=== PATIENT | female | born 1995 | race Caucasian/White ===

== ENCOUNTER 2023-09-08 22:03 | Inpatient (IN) ==
[2023-09-08 23:34] LABS: ABS Basophils 0.1 10^3/uL (0.0-0.1); ABS Lymphocytes 1.5 10^3/uL (1.0-4.8); ABS Monocytes 0.8 10^3/uL (0.0-0.9); ABS Neutrophils 12.5 10^3/uL (1.5-7.6); Eosinophil % 0.2 %; Hematocrit 40.5 % (35-45); Hemoglobin 13.5 g/dL (11.5-14.3); Lymphocyte % 9.8 %; Mean Corpuscular Hemoglobin 28.7 pg (27-33); Mean Corpuscular Hgb Conc 33.4 g/dL (31-36); Mean Corpuscular Volume 86.1 fL (80-97); Mean Platelet Volume 9.4 fL (7.5-11.2); Platelet Count 149 10^3/uL (150-450); Red Cell Distribution Width 15.3 % (12-17); White Blood Count 14.9 10^3/uL (3.8-11.8)
[2023-09-08 23:52] LABS: Urine Benzodiazepine Screen None Detected (None Detect); Urine Cannabinoids Screen None Detected (None Detect); Urine Opiates Screen None Detected (None Detect)
[2023-09-09] MEDS ORDERED: Lidocaine 1% VIAL 10 MG/ML 30 ML VIAL INJ PRN (01:20)
[2023-09-09] MEDS ORDERED: Prochlorperazine 5 mg/ml 2 ml VIAL (10 mg) IV PRN (01:20)
[2023-09-09] MEDS ORDERED: Nalbuphine 10 MG/ML 1 ML VIAL IV PRN (01:20)
[2023-09-09] MEDS: Lactated Ringers 1000 ml BAG 1,000 ML IV ONE (02:15)
[2023-09-09] MEDS: Lactated Ringers 1000 ml BAG 1,000 ML IV SCH ×2 (07:16→10:04)
[2023-09-09] MEDS: OBEPIDURAL (200 ML) 200 ML EPIDURAL ONE (08:23)
[2023-09-09] MEDS: Phenylephrine 40 mcg/mL 10mL (400mcg) SYRINGE IV PUSH PRN (08:35)
[2023-09-09] MEDS ORDERED: Lactated Ringers 1000 ml BAG 500 ML IV PRN ×2 (08:48)
[2023-09-09] MEDS ORDERED: Phenylephrine 40 mcg/mL 10mL (400mcg) SYRINGE IV PUSH PRN (08:48)
[2023-09-09] MEDS ORDERED: Phenylephrine IV 10 MG/ML 1 ml VIAL ONE (09:13)
[2023-09-09] MEDS ORDERED: Oxytocin 10 UNITS/ML 1 ML VIAL ONE (09:15)
[2023-09-09] MEDS ORDERED: Ondansetron 4 mg VIAL 2 MG/ML 2 ml VIAL ONE (09:15)
[2023-09-09] MEDS ORDERED: Lidocaine 2% PF 10 ML AMP (OR) ONE ×2 (09:16→11:25)
[2023-09-09 10:54] LABS: Urine Appearance Turbid; Urine Bilirubin Negative (Negative); Urine Blood 3+ (Negative); Urine Color Yellow; Urine Glucose Negative (Negative); Urine Ketones 1+ (Negative); Urine Nitrite Negative (Negative); Urine Protein 1+ (>=30 mg/dL) (Negative); Urine Specific Gravity 1.026 (1.002-1.030); Urine Urobilinogen Negative (Negative)
[2023-09-09] MEDS: Buffered Lidocaine 1% SYRIN 1 ml INTRADERM ONE (10:54)
[2023-09-09] MEDS: ceFAZolin 2 GM PREMIX 2 GM/50 ML BAG IVPB ONE (10:59)
[2023-09-09 11:02] LABS: Urine Bacteria Absent /HPF (Absent); Urine Red Blood Cell 3+(>10/hpf) /HPF (0-Trace); Urine Squamous Epithelial Cell Present /HPF (Absent); Urine White Blood Cell Trace(0-5/hpf) /HPF (0-Trace)
[2023-09-09] MEDS: Sodium Citrate/Citric Acid LIQ 15 ML UDC PO PRN (11:04)
[2023-09-09] MEDS: OBEPIDURAL (200 ML) 200 ML EPIDURAL SCH (11:04)
[2023-09-09] MEDS: Azithromycin 500 mg/250 ml NS 500 MG/250 ML BAG IVPB ONE (11:30)
[2023-09-09] MEDS ORDERED: Morphine PF AMP (0.5MG/ML) 5 MG/10 ML AMP ONE (11:32)
[2023-09-09] MEDS ORDERED: Naloxone 0.4 mg VIAL 0.4 mg/ml 1 ml VIAL IV PUSH PRN (11:55)
[2023-09-09] MEDS ORDERED: Metoclopramide 5 MG/ML VIAL (10 mg) IV PRN (11:55)
[2023-09-09] MEDS ORDERED: Acetaminophen IV 1 GM/100ML 1,000 MG/100 ML BAG IV PRN (11:55)
[2023-09-09] MEDS ORDERED: Ondansetron 4 mg VIAL 2 MG/ML 2 ml VIAL IV PRN (11:55)
[2023-09-09] MEDS ORDERED: Glycerin ADULT 2.4 gm SUPP PR PRN (12:24)
[2023-09-09] MEDS ORDERED: Dibucaine 1% OINT 28.35 GM TUBE PR PRN (12:24)
[2023-09-09] MEDS ORDERED: Witch Hazel PAD JAR TOPICAL PRN (12:24)
[2023-09-09] MEDS ORDERED: Lactated Ringers 1000 ml BAG 1,000 ML IV SCH (13:00)
[2023-09-09] MEDS: Oxytocin in LR 20,000 MILLI.UNIT/1,000 ML BAG IV SCH (13:27)
[2023-09-10 07:06] LABS: ABS Basophils 0.1 10^3/uL (0.0-0.1); ABS Lymphocytes 1.7 10^3/uL (1.0-4.8); ABS Monocytes 0.9 10^3/uL (0.0-0.9); ABS Neutrophils 11.4 10^3/uL (1.5-7.6); ABS Nucleated RBC 0.01 10^3/ul; Eosinophil % 0.3 %; Hematocrit 31.5 % (35-45); Hemoglobin 10.9 g/dL (11.5-14.3); Lymphocyte % 12.2 %; Mean Corpuscular Hemoglobin 29.7 pg (27-33); Mean Corpuscular Hgb Conc 34.6 g/dL (31-36); Mean Platelet Volume 8.8 fL (7.5-11.2); Platelet Count 124 10^3/uL (150-450); Red Blood Count 3.66 10^6/uL (3.63-4.92); Red Cell Distribution Width 15.4 % (12-17); White Blood Count 14.2 10^3/uL (3.8-11.8)
[2023-09-10] MEDS: Lactated Ringers 1000 ml BAG 1,000 ML IV ONE (07:49)
[2023-09-10] MEDS: Phenylephrine 40 mcg/mL 10mL (400mcg) SYRINGE ONE (07:49)
[2023-09-10] MEDS: Lidocaine 1.5% EPI 1:200,000 30 ML SDV ONE (07:49)
[2023-09-12 07:56] VITALS: BP 125/68
== END 2023-09-12 12:25 | disposition home or self-care (01) | DRG 540 ==
LOC: MCHOBOUT 22:03 → MCHOB 22:54
PROVIDERS: ADMIT Obstetrics & Gynecology; ATTEND Obstetrics & Gynecology